=== PATIENT | female | born 1945 | race Two or more races ===

== ENCOUNTER 2020-11-09 07:41 | Day surgery (SDC) | payer OTHER ==
[~2020-11-09 07:41] MED LIST: B12 ACTIVE1000 MCG PO; TAMOXIFEN CITRA20 MG PO; VITAL-D RX TAB1 EACH PO; VITAMIN C500 M6 PO
== END 2020-11-09 15:35 | disposition home or self-care (01) ==
LOC: CIR.AMB 07:41
PROVIDERS: ATTEND Specialist
DX: N85.01 Benign endometrial hyperplasia (principal)

== ENCOUNTER 2021-07-04 11:15 | Inpatient (IN) | payer OTHER ==
[~2021-07-04] VITALS: Ht 162.6 cm; Wt 56.2 kg
== END 2021-07-09 13:13 | disposition home or self-care (01) | DRG 743 ==
LOC: OB/GYN 07-06 07:15 → O/R 07-06 07:15 → SURH 07-06 10:30 → OB/GYN 07-06 14:59
PROVIDERS: ADMIT Specialist; ATTEND Specialist
PROC: 0UT20ZZ Resection of Bilateral Ovaries, Open Approach (ICD-10-PCS; 2021-07-06)
PROC: 0UT70ZZ Resection of Bilateral Fallopian Tubes, Open Approach (ICD-10-PCS; 2021-07-06)
PROC: 0UT90ZZ Resection of Uterus, Open Approach (ICD-10-PCS; principal; 2021-07-06 10:30)
DX: D25.2 Subserosal leiomyoma of uterus (principal); N72 Inflammatory disease of cervix uteri; N85.01 Benign endometrial hyperplasia; N83.292 Other ovarian cyst, left side; N83.291 Other ovarian cyst, right side